=== PATIENT | male | born 1945 | race Hispanic/Latino ===

== ENCOUNTER 2019-06-19 16:02 | Emergency (ER) | payer OTHER ==
[2019-06-19] MEDS ORDERED: ALBUTEROL 2.5 MG/3 ML NEBU IH ONE (16:37)
--- NOTE | 2019-06-19 16:41 | Emergency Department Report ---
ED Abdominal Pain HPI - General Chief Complaint: Back Pain/Injury Stated Complaint: BACK PAIN /UTI RELATED Time Seen by Provider: 06/19/19 16:31 Source: patient, EMS Mode of arrival: Stretcher Limitations: No Limitations - History of Present Illness Initial Comments: Patient is 73 years old male with history of schizophrenia, COPD and hypertension. Patient presented to the ER from a personal nursing home for evaluation of difficulty urinating associated with a left flank and suprapubic pain. Patient stated that he had a Sheridan catheter that has been removed few days ago. Patient denied any nausea or vomiting. No hematuria. Patient denied any chest pain. MD Complaint: abdominal pain, flank pain -: Last night Location: suprapubic, L flank Radiation: none - Related Data Previous Rx's Medication Instructions Recorded Last Taken Type levoFLOXacin [Levaquin] 750 mg PO QDAY #7 tablet 05/19/19 Unknown Rx levoFLOXacin [Levaquin TAB] 500 mg PO QDAY #7 tablet 06/19/19 Unknown Rx Allergies Allergy/AdvReac Type Severity Reaction Status Date / Time No Known Allergies Allergy Unverified 05/19/19 18:24 ED Review of Systems ROS: Stated complaint: BACK PAIN /UTI RELATED Other details as noted in HPI Comment: All other systems reviewed and negative Constitutional: denies: chills, fever Respiratory: cough, wheezing. denies: shortness of breath Cardiovascular: denies: chest pain Gastrointestinal: abdominal pain. denies: hematemesis, hematochezia Genitourinary: urgency, dysuria, frequency, hematuria. denies: testicular pain, testicular mass Musculoskeletal: back pain ED Past Medical Hx - Past Medical History Hx Hypertension: Yes Hx Psychiatric Treatment: (Schizophrenia) Additional medical history: tremors - Social History Smoking Status: Former Smoker Substance Use Type: None - Medications Home Medications: Home Medications Medication Instructions Recorded Confirmed Last Taken Type levoFLOXacin [Levaquin] 750 mg PO QDAY #7 tablet 05/19/19 Unknown Rx levoFLOXacin [Levaquin TAB] 500 mg PO QDAY #7 tablet 06/19/19 Unknown Rx ED Physical Exam - General Limitations: No Limitations General appearance: alert, in no apparent distress - Head Head exam: Present: atraumatic, normocephalic, normal inspection - ENT ENT exam: Present: normal exam, normal orophraynx, mucous membranes moist - Neck Neck exam: Present: normal inspection, full ROM. Absent: tenderness, meningismus, lymphadenopathy, thyromegaly - Respiratory Respiratory exam: Present: wheezes. Absent: rales, rhonchi, accessory muscle use, decreased breath sounds, prolonged expiratory - Cardiovascular Cardiovascular Exam: Present: regular rate, normal rhythm, normal heart sounds - GI/Abdominal GI/Abdominal exam: Present: soft, distended, normal bowel sounds. Absent: tenderness, guarding, rebound, rigid, organomegaly, mass, bruit, pulsatile mass, hernia - Extremities Exam Extremities exam: Present: normal inspection, full ROM, normal capillary refill. Absent: pedal edema, calf tenderness - Back Exam Back exam: Present: normal inspection, full ROM. Absent: CVA tenderness (R), CVA tenderness (L), muscle spasm, paraspinal tenderness, vertebral tenderness - Neurological Exam Neurological exam: Present: alert, oriented X3, CN II-XII intact, normal gait, reflexes normal. Absent: motor sensory deficit - Psychiatric Psychiatric exam: Present: normal mood - Skin Skin exam: Present: warm, intact ED Course Vital Signs 06/19/19 06/19/19 06/19/19 16:13 16:59 17:25 Temperature 96.7 F L Pulse Rate 120 H Pulse Rate [ 123 H Anterior Bilateral Throughout] Respiratory 18 17 Rate Respiratory 20 Rate [Anterior Bilateral Throughout] Blood Pressure 167/85 [Left] O2 Sat by Pulse 96 Oximetry ED Medical Decision Making - Lab Data Result diagrams: 06/19/19 17:02 06/19/19 17:02 - Radiology Data Radiology results: report reviewed - Medical Decision Making Patient is 73 years old male with history of schizophrenia, COPD and hypertension. Patient presented to the ER from a personal nursing home for evaluation of difficulty urinating associated with a left flank and suprapubic pain. Patient stated that he had a Sheridan catheter that has been removed few days ago. Patient denied any nausea or vomiting. No hematuria. Patient denied any chest pain. Bladder scan showed a residual of 180 mL. Sheridan catheter placed. Patient stated that he is feeling much better. Labs reviewed and is unremarkable except for strong UTI. Patient given Rocephin [address] abdomen and pelvis showed large amount of stool. Patient will be discharged back to his personal care [facility] with prescription for Levaquin. Patient advised to return to the ER if he develop any new symptoms. Critical care attestation.: If time is entered above; I have spent that time in minutes in the direct care of this critically ill patient, excluding procedure time. ED Disposition Clinical Impression: Urinary retention, COPD exacerbation, UTI (urinary tract infection), Constipation Disposition: TO HOME OR SELFCARE Is pt being admited?: No Condition: Stable Instructions: Chronic Obstructive Pulmonary Disease (ED) Prescriptions: levoFLOXacin [Levaquin TAB] 500 mg PO QDAY #7 tablet Referrals: PRIMARY CARE, [Referring] - 3-5 Days
[2019-06-19] MEDS: IPRATROPIUM 0.02% NEBU 2.5 ML IH ONE (16:52)
[2019-06-19 17:01] LABS: Bacteria,Urine 1+ /HPF (Negative); Bilirubin,Urine NEG (Negative); Blood,Urine MOD (Negative); Color,Urine Yellow (Yellow)
[2019-06-19 17:03] LABS: WBC,Urine > 182.0 /HPF (0.0-6.0)
--- NOTE | 2019-06-19 17:15 | XRay Report ---
CHEST 1 VIEW 06/19/2019 4:41 PM INDICATION / CLINICAL INFORMATION: cough. COMPARISON: None available. FINDINGS: SUPPORT DEVICES: None. HEART / MEDIASTINUM: No significant abnormality. LUNGS / PLEURA: There is probable bibasilar atelectasis. The lungs are otherwise clear. No significan t pleural effusion. No pneumothorax. ADDITIONAL FINDINGS: No significant additional findings. IMPRESSION: 1. No acute abnormality of the chest. 2. Probable bibasilar atelectasis. Signer Name: Francisco Javier Muniz MD Signed: 06/19/2019 5:10 PM Workstation Name: [id number]
[2019-06-19 17:23] LABS: Basophils % (Auto) 0.3 % (0.0-1.8); Eosinophils # (Auto) 0.1 K/mm3 (0.0-0.4); Eosinophils % (Auto) 0.7 % (0.0-4.3); Hematocrit 30.2 % (35.5-45.6); Hemoglobin 9.9 gm/dl (11.8-15.2); Lymphocytes # (Auto) 1.3 K/mm3 (1.2-5.4); Lymphocytes % (Auto) 9.6 % (13.4-35.0); Mean Corpuscular HGB Conc 33 % (32-34); Mean Corpuscular Volume 96 fl (84-94); Monocytes # (Auto) 1.9 K/mm3 (0.0-0.8); Monocytes % (Auto) 13.9 % (0.0-7.3); Platelet Count 326 K/mm3 (140-440); Red Blood Count 3.16 M/mm3 (3.65-5.03); Red Cell Distribution Width 15.4 % (13.2-15.2)
[2019-06-19] MEDS ORDERED: cefTRIAXone/NS 1 GM/50 ML 1 GM/50 ML BAG IV ONE (17:28)
[2019-06-19 17:36] LABS: Albumin 3.1 g/dL (3.9-5); Bilirubin,Direct 0.2 mg/dL (0-0.2); Calcium 9.5 mg/dL (8.4-10.2)
--- NOTE | 2019-06-19 18:42 | Cat Scan Report ---
CT ABDOMEN AND PELVIS WITHOUT CONTRAST INDICATION / CLINICAL INFORMATION: Abdominal Pain. TECHNIQUE: Axial CT images were obtained through the abdomen and pelvis without IV contrast. All CT scans at [facility] location are performed using CT dose reduction for ALARA by means of automated exposure control. COMPARISON: None available. FINDINGS: Abdomen and pelvis: Exam is limited secondary to severe respiratory motion artifact and small bilater al pleural effusions. Gallstones are noted within the gallbladder. The liver, spleen, pancreas adrena l glands and kidneys are unremarkable within the limits of the noncontrast technique aside from a sma ll simple cyst within the lower pole the right kidney. Large stool burden identified throughout the c olon. The appendix is poorly identified secondary to motion artifact. Severe atherosclerotic calcific ation of a nondilated abdominal aorta. A large amount of gas is seen within the urinary bladder lumen , possibly echogenic. No acute small bowel obstruction is identified. Small type I hiatal hernia IMPRESSION: Limited exam secondary to motion artifact. Cholelithiasis and large stool burden identifi ed throughout the colon. Small bilateral pleural effusions. Moderate to large amount of gas identifie d within the urinary bladder lumen which could be secondary to placement of a Sheridan catheter. Signer Name: Jose Alberto Macias MD Signed: 06/19/2019 6:37 PM Workstation Name: [id number]
[2019-06-19 19:02] VITALS: BP 126/59
== END 2019-06-19 19:43 | disposition home or self-care (01) ==
LOC: ED 16:02
DX: R33.8 Other retention of urine (principal); N39.0 Urinary tract infection, site not specified; J44.1 Chronic obstructive pulmonary disease with (acute) exacerbation; K59.00 Constipation, unspecified; I10 Essential (primary) hypertension; F20.89 Other schizophrenia; Z87.891 Personal history of nicotine dependence
CPT/HCPCS: 36415; 51702; 71045; 74176; 80048; 80076; 81001; 85025; 94640; 96365; 99285; J0696; 94644

== ENCOUNTER 2020-03-10 18:05 | Emergency (ER) | payer OTHER ==
--- NOTE | 2020-03-10 20:10 | Event Note ---
ED Screening Note Date of service: 03/10/20 Time: 20:09 ED Screening Note: 74-year-old male presents to the emergency room for nausea and vomiting multiple times today. This initial assessment/diagnostic orders/clinical plan/treatment(s) is/are subject to change based on patients health status, clinical progression and re- assessment by fellow clinical providers in the ED. Further treatment and workup at subsequent clinical providers discretion. Patient/guardian urged not to elope from the ED as their condition may be serious if not clinically assessed and managed. Initial orders include:
--- NOTE | 2020-03-11 06:27 | Emergency Department Report ---
HPI - General Chief Complaint: Medical Clearance Time Seen by Provider: 03/11/20 06:12 - HPI HPI: This is a 74-year-old female who presents to the emergency department via EMS from his personal senior care with a complaint of "I choked on something this morning." Patient says that it was some type of food and that he ended up expectorating that food back up. At this time the patient has no complaints. He has a past medical history of dementia, schizophrenia, enlarged prostate, hypertension and chronic tremors. It is unknown whether the patient has taken anything or receive anything for his symptoms prior to presentation. EMS reports that the patient had some episodes of vomiting, but it is unknown whether that was at his personal senior care or in the presence of EMS. ED Past Medical Hx - Past Medical History Hx Hypertension: Yes Hx Psychiatric Treatment: (Schizophrenia) Hx Dementia: Yes Additional medical history: tremors - Surgical History Past Surgical History?: No - Social History Smoking Status: Former Smoker - Medications Home Medications: Home Medications Medication Instructions Recorded Confirmed Last Taken Type Lactulose 10 gm PO DAILY PRN #150 ml 06/19/19 08/09/19 Unknown Rx Benztropine Mesylate 0.5 mg PO ONCE 08/09/19 08/09/19 08/08/19 History Depakote ER 500 mg PO ONCE 08/09/19 08/09/19 08/08/19 History Finasteride 5 mg PO ONCE 08/09/19 08/09/19 08/08/19 History Flomax 0.4 mg PO ONCE 08/09/19 08/09/19 08/07/19 History Ipratropium/Albuter (Nf) 0.83 mg INHALATION PRN 08/09/19 08/09/19 08/08/19 History Lisinopril 20 mg PO ONCE 08/09/19 08/09/19 08/08/19 History Melatonin 5 mg PO HS 08/09/19 08/09/19 08/07/19 History allopurinoL 300 mg PO ONCE 08/09/19 08/09/19 08/08/19 History Finasteride [Proscar] 5 mg PO QDAY tablet 08/13/19 Unknown Rx Melatonin [Melatonin 5MG TAB] 5 mg PO HS tablet 08/13/19 Unknown Rx levoFLOXacin [Levaquin TAB] 750 mg PO QDAY #7 tablet 08/13/19 Unknown Rx ED Review of Systems ROS: Stated complaint: TREMORS Other details as noted in HPI Comment: Unobtainable due to pts medical conditions (Dementia, poor historian) Physical Exam - Physical Exam Vital Signs: Vital Signs 03/10/20 18:47 Temperature 98.5 F Pulse Rate 102 H Respiratory 15 Rate Blood Pressure 125/66 O2 Sat by Pulse 97 Oximetry Physical Exam: GENERAL: The patient is well-developed well-nourished. HENT: Normocephalic. Atraumatic. Patient has moist mucous membranes. EYES: Extraocular motions are intact. NECK: Supple. Trachea is midline. CHEST/LUNGS: Clear to auscultation. There is no respiratory distress noted. HEART/CARDIOVASCULAR: Regular. There is no tachycardia. There is no murmur. ABDOMEN: Abdomen is soft, nontender. Patient has normal bowel sounds. There is no abdominal distention. SKIN: Skin is warm and dry. NEURO: The patient is awake, alert, and cooperative. There is a persistent bilateral upper extremity tremor. Normal speech. MUSCULOSKELETAL: There is no tenderness or deformity. There is no limitation range of motion. ED Course Vital Signs 03/10/20 18:47 Temperature 98.5 F Pulse Rate 102 H Respiratory 15 Rate Blood Pressure 125/66 O2 Sat by Pulse 97 Oximetry - Reevaluation(s) Reevaluation #1: 03/11/20 11:11 Lab Results 03/11/20 03/11/20 Range/Units 06:31 06:31 WBC 11.6 H (4.5-11.0) K/mm3 RBC 3.44 L (3.65-5.03) M/mm3 Hgb 9.3 L (11.8-15.2) gm/dl Hct 28.3 L (35.5-45.6) % MCV 82 L (84-94) fl MCH 27 L (28-32) pg MCHC 33 (32-34) % RDW 15.9 H (13.2-15.2) % Plt Count 302 (140-440) K/mm3 Lymph % (Auto) 11.7 L (13.4-35.0) % Davis % (Auto) 10.6 H (0.0-7.3) % Eos % (Auto) 1.5 (0.0-4.3) % Baso % (Auto) 0.8 (0.0-1.8) % Lymph # (Auto) 1.4 (1.2-5.4) K/mm3 Davis # (Auto) 1.2 H (0.0-0.8) K/mm3 Eos # (Auto) 0.2 (0.0-0.4) K/mm3 Baso # (Auto) 0.1 (0.0-0.1) K/mm3 Seg Neutrophils % 75.4 H (40.0-70.0) % Seg Neutrophils # 8.7 H (1.8-7.7) K/mm3 Sodium 130 L (137-145) mmol/L Potassium 4.7 (3.6-5.0) mmol/L Chloride 96.1 L (98-107) mmol/L Carbon Dioxide 27 (22-30) mmol/L Anion Gap 12 mmol/L BUN 15 (9-20) mg/dL Creatinine 0.9 (0.8-1.3) mg/dL Estimated GFR > 60 ml/min BUN/Creatinine Ratio 17 % Glucose 91 (75-100) mg/dL Calcium 8.4 (8.4-10.2) mg/dL Reevaluation #2: 03/11/20 11:11 Vital Signs 03/10/20 03/11/20 18:47 07:18 Temperature 98.5 F Pulse Rate 102 H 87 Respiratory 15 20 Rate Blood Pressure 125/66 Blood Pressure 132/85 [Left] O2 Sat by Pulse 97 100 Oximetry ED Medical Decision Making - Lab Data Result diagrams: 03/11/20 06:31 03/11/20 06:31 - Medical Decision Making This patient presents to the emergency department after saying that he was having a choking episode earlier prior to presentation. There is some triage information or EMS report that the patient had some vomiting prior to presentation. However the patient has been in the emergency department for multiple hours overnight prior to my shift starting, and there has been no nausea/vomiting or any signs of choking. The patient does not appear in any respiratory or acute distress. A chest x-ray was done that does not show any pneumonia, clear signs of aspiration, pleural effusions, pneumothorax, or any other acute process. Patient's labs are mostly unremarkable. There is some anemia but this is actually improved from previous visit and does not require any transfusion. Vital signs have been reassuring throughout his ED course including being afebrile. For all these reasons the patient appears safe for zachary glass back to his personal senior care at this time. Instructions have included to follow-up with the primary care physician and to return to the ER with any worsening of his symptoms or with any acute distress. Critical Care Time: No Critical care attestation.: If time is entered above; I have spent that time in minutes in the direct care of this critically ill patient, excluding procedure time. ED Disposition Clinical Impression: Choking episode Vomiting Qualifiers: Vomiting type: unspecified Vomiting Intractability: non-intractable Nausea presence: unspecified Qualified Code(s): R11.10 - Vomiting, unspecified Disposition: DC-01 TO HOME OR SELFCARE Is pt being admited?: No Condition: Stable Instructions: Nausea and Vomiting, Adult Additional Instructions: Return to the emergency department with any worsening of your symptoms, new or concerning symptoms not addressed during this current emergency department visit, or with any acute distress. Referrals: PCP, Your [Other] - 2-3 Days Time of Disposition: 07:56
--- NOTE | 2020-03-11 06:59 | XRay Report ---
CHEST 1 VIEW 03/11/2020 6:45 AM INDICATION / CLINICAL INFORMATION: cough. COMPARISON: 08/08/2019 FINDINGS: SUPPORT DEVICES: None. HEART / MEDIASTINUM: No significant abnormality. LUNGS / PLEURA: No significant pulmonary or pleural abnormality. No pneumothorax. ADDITIONAL FINDINGS: No significant additional findings. IMPRESSION: 1. No acute findings. Signer Name: Bernardo Shetty MD Signed: 03/11/2020 6:54 AM Workstation Name: [id number]
[2020-03-11 07:19] LABS: Basophils # (Auto) 0.1 K/mm3 (0.0-0.1); Basophils % (Auto) 0.8 % (0.0-1.8); Eosinophils # (Auto) 0.2 K/mm3 (0.0-0.4); Eosinophils % (Auto) 1.5 % (0.0-4.3); Hematocrit 28.3 % (35.5-45.6); Hemoglobin 9.3 gm/dl (11.8-15.2); Lymphocytes # (Auto) 1.4 K/mm3 (1.2-5.4); Lymphocytes % (Auto) 11.7 % (13.4-35.0); Mean Corpuscular HGB Conc 33 % (32-34); Mean Corpuscular Volume 82 fl (84-94); Monocytes # (Auto) 1.2 K/mm3 (0.0-0.8); Monocytes % (Auto) 10.6 % (0.0-7.3); Platelet Count 302 K/mm3 (140-440); Red Blood Count 3.44 M/mm3 (3.65-5.03); Red Cell Distribution Width 15.9 % (13.2-15.2)
[2020-03-11 07:22] VITALS: BP 132/85
[2020-03-11 07:38] LABS: BUN/Creatinine Ratio 17; Blood Urea Nitrogen 15 mg/dL (9-20); Calcium 8.4 mg/dL (8.4-10.2); Hemolysis Index 4
== END 2020-03-11 09:39 | disposition home or self-care (01) ==
LOC: ED 18:05
DX: R11.10 Vomiting, unspecified (principal); R09.89 Other specified symptoms and signs involving the circulatory and respiratory systems; I10 Essential (primary) hypertension; F20.89 Other schizophrenia; F03.90 Unspecified dementia, unspecified severity, without behavioral disturbance, psychotic disturbance, mood disturbance, and anxiety; Z87.891 Personal history of nicotine dependence; Z79.899 Other long term (current) drug therapy
CPT/HCPCS: 36415; 71045; 80048; 85025